=== PATIENT | female | born 1995 | race Caucasian/White ===

== ENCOUNTER 2021-06-15 14:07 | Emergency (ER) | payer MEDICAID, OTHER ==
[~2021-06-15] VITALS: Ht 157.5 cm; Wt 66.0 kg
[2021-06-15 14:16] VITALS: BP 120/75
[2021-06-15] MEDS ORDERED: ORPHENADRINE CITRATE 60 MG/2 ML VIAL. IM ONE (14:30)
[2021-06-15] MEDS ORDERED: KETOROLAC 60 MG/2 ML VIAL. IM ONE (14:30)
--- NOTE | 2021-06-15 14:34 | RAD ---
Site ID: [id number] EXAMINATION: XR LUMBAR SPINE 2-3V. HISTORY: 25 years Female Reason: low back pain, fall COMPARISON: None. FINDINGS: The alignment of the lumbar spine is satisfactory. There is straightening of the spine curvature whic h may relate to muscle spasm. The vertebral body heights and disc heights are preserved. No spondylol isthesis. No compression fractures. SI joints appear unremarkable. The paraspinal soft tissues appear grossly unremarkable. IMPRESSION: There is straightening of the lumbar spine curvature which may relate to muscle spasm. No compression fracture. Electronically signed by: Frantz Arevalo MD (06/15/2021 2:32 PM) [id number]
--- NOTE | 2021-06-15 14:38 | PHYS DOC ---
Past History Past Surgical History: Tubal ligation (SARAHY BROWN APRN) General Adult EDM: Chief Complaint: LOWER BACK PAIN OR INJURY HPI: HPI: Patient is a 25-year-old female being seen in the ER with pain to her coccyx. Patient states that 3 days ago she was running with her son and she slipped and fell back onto her bottom. Patient rates pain 7 out of 10. She states it reall y did not hurt until yesterday. It is painful to sit. Patient is able to bear weight and ambulate with a steady gait. She denies any numbness or tingling in her extremities, saddle anesthesias, radiation of pain, loss of bowel or bladder. (SARAHY BROWN APRN) Review of Systems: Review of Systems: 14 body systems of the review of systems have been reviewed. See HPI for pertinent positive and negative responses, otherwise all other systems are negative, nonpertinent or noncontributory (SARAHY BROWN APRN) Current Medications: Current Meds: Current Medications Medications (Trade) Dose Ordered Sig/Jm Start Time Stop Time Status Last Admin Dose Admin Ketorolac Tromethamine (Toradol Im) 60 mg 1X ONCE 06/15/21 14:30 06/15/21 14:31 DC Orphenadrine Citrate (Norflex) 60 mg 1X ONCE 06/15/21 14:30 06/15/21 14:31 DC (SARAHY BROWN APRN) Allergies: Allergies: Allergies Coded Allergies Type Severity Reaction Last Updated Verified No Known Drug Allergies 06/15/21 No (SARAHY BROWN APRN) Physical Exam: PE: Constitutional: Well developed, well nourished, no acute distress, non-toxic appearance. [] HENT: Normocephalic, atraumatic, bilateral external ears normal, oropharynx moist, no oral exudates, nose normal. [] Eyes: PERRL, EOMI, conjunctiva normal, no discharge. [] Neck: Normal range of motion, no bony cervical spinal tenderness, supple, no stridor. [] Cardiovascular:Heart rate regular rhythm, no murmur [] Lungs & Thorax: Bilateral breath sounds clear to auscultation [] Abdomen: Bowel sounds normal, soft, no tenderness, no masses, no pulsatile masses. [] Skin: Warm, dry, no erythema, no rash. [] Back: No bony spinal tenderness, no CVA tenderness, pain with palpation to the coccyx. [] Extremities: No tenderness, no cyanosis, no clubbing, ROM intact, no edema. [] Neurologic: Alert and oriented X 3, normal motor function, normal sensory function, no focal deficits noted. [] Psychologic: Affect normal, judgement normal, mood normal. [] (SARAHY BROWN APRN) Current Patient Data: Vital Signs: Vital Signs Date Time Temp Pulse Resp B/P (MAP) Pulse Ox O2 Delivery O2 Flow Rate FiO2 06/15/21 14:16 85 18 120/75 (90) 100 (SARAHY BROWN APRN) EKG: EKG: [] (SARAHY BROWN APRN) Radiology/Procedures: Radiology/Procedures: []PROCEDURE: SACRUM & COCCYX 3V XR SACRUM AND COCCYX 2+VIEWS History: Back pain. Fall onto coccyx. Comparison: 10/08/2017 Technique: AP view sacrum. AP view coccyx. Lateral view sacrum and coccyx. Findings: Osseous mineralization is normal. The distal coccygeal segment is not well visualized, however there is subtle cortical irregularity on the lateral view only. The sacroiliac joints and pubic symphysis are unremarkable. Soft tissues are unremarkable. Impression: 1. Poorly visualized distal coccygeal segment demonstrates cortical irregularities concerning for fracture, identified in the lateral view only. Electronically signed by: Fernando Mariscal MD (06/15/2021 2:59 PM) [id number] DICTATED AND SIGNED BY: FERNANDO MARISCAL MD DATE: 06/15/21 1454 CC: SARAHY BROWN APRN; PCP,NO ~MTH0 0 Site ID: [id number] EXAMINATION: XR LUMBAR SPINE 2-3V. HISTORY: 25 years Female Reason: low back pain, fall COMPARISON: None. FINDINGS: The alignment of the lumbar spine is satisfactory. There is straightening of the spine curvature which may relate to muscle spasm. The vertebral body heights a nd disc heights are preserved. No spondylolisthesis. No compression fractures. SI joints appear unremarkable. The paraspinal soft tissues appear grossly unremarkable. IMPRESSION: There is straightening of the lumbar spine curvature which may relate to muscle spasm. No compression fracture. Electronically signed by: Yan Arevalo MD (06/15/2021 2:32 PM) [id number] DICTATED AND SIGNED BY: YAN AREVALO MD DATE: 06/15/21 1429 CC: SARAHY BROWN APRN; PCP,NO ~MTH0 0 (SARAHY BROWN APRN) Heart Score: C/O Chest Pain: No Risk Factors: Risk Factors: DM, Current or recent (<one month) smoker, HTN, HLP, family history of CAD, obesity. Risk Scores: Score 0 - 3: 2.5% MACE over next 6 weeks - Discharge Home Score 4 - 6: 20.3% MACE over next 6 weeks - Admit for Clinical Observation Score 7 - 10: 72.7% MACE over next 6 weeks - Early Invasive Strategies (SARAHY BROWN APRN) Course & Med Decision Making: Course & Med Decision Making Pertinent Labs and Imaging studies reviewed. (See chart for details) [] Patient is a 25-year-old female being seen in the ER for pain to her coccyx after she fell onto it 3 days ago. Imaging was performed in the ER that showed possible coccyx fracture. Patient treated with anti-inflammatory medications and muscle relaxer. Patient advised to follow-up with her primary care provider tomorrow. She was advised to take Tylenol/ibuprofen for pain at home. She is educated on rest and cushion for coccyx. I discussed with patient all findings and diagnostic testing as well as the need to follow-up with PCP for further evaluation and treatment or return to the ER if any new or worsening symptoms. Strict return precautions were also discussed at length. Patient voiced understanding and agreement with the plan. Patient is hemodynamically stable at the time of disposition. (SARAHY BROWN APRN) Course & Med Decision Making I was the Attending physician on the above date of service of this patient. This patient was evaluated, examined, treated, and dispositioned from the emergency department by the mid-level practitioner. Although I was working at the time , no assistance was requested. Electronically signed, Esther Urena DO (ESTHER URENA DO) Magy Disclaimer: Magy Disclaimer: This electronic medical record was generated, in whole or in part, using a voice recognition dictation system. (SARAHY BROWN APRN) Departure Departure: Impression: Primary Impression: Fractured coccyx Qualified Codes: S32.2XXA - Fracture of coccyx, initial encounter for closed fracture Disposition: HOME / SELF CARE / HOMELESS Condition: GOOD Referrals: PCP,NO (PCP) Patient Instructions: Back Pain, Adult Additional Instructions: You were seen in the ER today for pain to your coccyx after falling onto it. Imaging was performed in the ER that showed a possible fracutre of your coccyx. Your pain was treated in the ER. You can take Ibuprofen at home for mild pain, for severe pain you can take the medication you are being prescribed. This medication is called Heath. It contains hydrocodone and Tylenol combination tablet. Do not take any additional Tylenol with this medication. Do not take this medication when you need to be alert and do not take with alcohol as it may cause drowsiness. You can also apply ice. You may benefit from purchasing a cushion to sit on for your coccyx. Follow-up with your primary care provider tomorrow regarding your ER visit. If you develop worsening of your pain, inability to bear weight or ambulate, loss of bowel or bladder, numbness or tingling in your groin or down your legs please return to the ER immediately. EMERGENCY DEPARTMENT GENERAL DISCHARGE INSTRUCTIONS Thank you for coming to [facility] (ED) today and trusting us with you care. We trust that you had a positivie experience in our Emergency Department. If you wish to speak to the department management, you may call the director at [phone]. YOUR FOLLOW UP INSTRUCTIONS ARE FOLLOWS: 1. Do you have a private Doctor? If you do not have a private doctor, please ask for a resource list of physicians or clinics that may be able to assist you with follow up care. 2. The Emergency Physician has interpreted your x-rays. The X-Ray specialist will also review them. If there is a change in the findings, you will be notified in 48 hours when at all possible. 3. A lab test or culture has been done, your results will be reviewed and you will be notified if you need a change in treatment. ADDITIONAL INSTRUCTIONS AND INFORMATION: 1. Your care today has been supervised by a physician who is specially trained in emergency care. Many problems require more than one evaluation for a complete diagnosis and treatment. We recommend that you schedule your follow up appointment as recommended to ensure complete treatment of you illness or injury. If you are unable to obtain follow up care and continue to have a problem, or if your condition worsens, we recommend that you return to the ED. 2. We are not able to safely determine your condition over the phone nor are we able to give sound medical advice over the phone. For these safety reasons, if you call for medical advice we will ask you to come to the ED for further evaluation. 3. If you have any questions regarding these discharge instructions please call the ED at [phone]. SAFETY INFORMATION: In the interest of safety, wellness, and injury prevention; we encourage you to wear your sealbelt, if you smoke; quite smoking, and we encourage family to use a protective helmet for bicycling and other sporting events that present an increased risk for head injury. IF YOUR SYMPTOMS WORSEN OR NEW SYMPTOMS DEVELOP, OR YOU HAVE CONCERNS ABOUT YOUR CONDITION; OR IF YOUR CONDITION WORSENS WHILE YOU ARE WAITING FOR YOUR FOLLOW UP APPOINTMENT; EITHER CONTACT YOUR PRIMARY CARE DOCTOR, THE PHYSICIAN WHOSE NAME AND NUMBER YOU WERE GIVEN, OR RETURN TO THE ED IMMEDIATELY. Scripts Hydrocodone Bit/Acetaminophen (HYDROCODONE-APAP 5-325 ) 1 Each Tablet 1 TAB PO PRN Q6HRS PRN for PAIN for 2 Days, #8 TAB 0 Refills Prov: SARAHY BROWN APRN 06/15/21 SARAHY BROWN APRN Jun 15, 2021 14:38 ESTHER URNEA DO Jun 20, 2021 17:52
--- NOTE | 2021-06-15 15:02 | RAD ---
XR SACRUM AND COCCYX 2+VIEWS History: Back pain. Fall onto coccyx. Comparison: 10/08/2017 Technique: AP view sacrum. AP view coccyx. Lateral view sacrum and coccyx. Findings: Osseous mineralization is normal. The distal coccygeal segment is not well visualized, however there is subtle cortical irregularity on the lateral view only. The sacroiliac joints and pubic symphysis a re unremarkable. Soft tissues are unremarkable. Impression: 1. Poorly visualized distal coccygeal segment demonstrates cortical irregularities concerning for fr acture, identified in the lateral view only. Electronically signed by: Fernando Man MD (06/15/2021 2:59 PM) [id number]
[2021-06-15] MEDS ORDERED: HYDR-2155 PO (15:13)
== END 2021-06-15 15:35 | disposition home or self-care (01) ==
LOC: ER 14:07
DX: S32.2XXA Fracture of coccyx, initial encounter for closed fracture (principal); Z98.51 Tubal ligation status; W01.0XXA Fall on same level from slipping, tripping and stumbling without subsequent striking against object, initial encounter; Y93.02 Activity, running; Y92.89 Other specified places as the place of occurrence of the external cause; Y99.8 Other external cause status
CPT/HCPCS: 72100; 72220; 99284

== ENCOUNTER 2021-06-27 17:08 | Emergency (ER) | payer MEDICAID, OTHER ==
[~2021-06-27] VITALS: Ht 157.5 cm; Wt 63.6 kg
[~2021-06-27 17:08] MED LIST: HYDR-2155 PO
[2021-06-27 18:21] VITALS: BP 116/76
--- NOTE | 2021-06-27 18:33 | PHYS DOC ---
Past History Past Surgical History: Tubal ligation Adult General Chief Complaint Chief Complaint: DENTAL PROBLEM HPI HPI Patient is a 26-year-old female presenting for dental pain. This is a chronic issue. She reports just moving to the local area and not establishing with a dentist. She has longstanding history of poor dentition, dental caries and has remote history of dental abscess that is never required drainage. She has had numerous rounds of antibiotics but nothing recently. States she has been using ibuprofen and Tylenol for pain control without significant relief for past 48 hours. Reports pain is on the upper right side of her mouth and radiates up towards her head and down towards her inferior jawline. She was discussing symptoms with her mother who was concern for potential abscess or infection. She has no other medical issues, takes no other medications on a daily basis Review of Systems Review of Systems Fourteen body systems of review of systems have been reviewed. See HPI for pertinent positives and negative responses, other [place] all other systems are negative, non-pertinent or non-contributory Allergies Allergies Allergies Coded Allergies Type Severity Reaction Last Updated Verified No Known Drug Allergies 06/15/21 No Physical Exam Physical Exam Constitutional: Well developed, well nourished, no acute distress, non-toxic appearance. HENT: Normocephalic, atraumatic, bilateral external ears normal, oropharynx moist, no oral exudates, nose normal. Grossly poor dentition with numerous missing teeth, several dental caries that appear chronic, no obvious signs of active infection or abscess Eyes: PERRLA, EOMI, conjunctiva normal, no discharge. Neck: Normal range of motion, no tenderness, supple, no stridor. Cardiovascular: Heart rate regular per monitor Lungs & Thorax: No respiratory distress or accessory muscle use, bilateral chest rise Abdomen: Abdomen soft, non-tender, bowel sounds present in all quadrants, no guarding or rebound, nonacute abdomen. Skin: Warm, dry, no erythema, no rash. Back: No tenderness, no CVA tenderness. Extremities: No tenderness, no cyanosis, no clubbing, ROM intact, no edema. Neurologic: Alert and oriented X 3, grossly normal motor & sensory function, no focal deficits noted. Psychologic: Affect normal, judgement normal, mood normal. EKG EKG [] Radiology/Procedures Radiology/Procedures [] Heart Score C/O Chest Pain: No Risk Factors: Risk Factors: DM, Current or recent (<one month) smoker, HTN, HLP, family history of CAD, obesity. Risk Scores: Risk Factors: DM, Current or recent (<one month) smoker, HTN, HLP, family history of CAD, obesity. Course & Med Decision Making Course & Med Decision Making ABCs unremarkable HPI and physical exam nonconcerning for any emergent or surgical issues. Patient has no findings of active infection and/or abscess requiring incision and drainage and/or antibiotics Advise continued supportive care using ibuprofen and Motrin with Magic mouthwash, patient was given x1 [place] today with instructions to follow-up in outpatient setting with dentist for definitive management Strict return precautions discussed with good understanding by patient, all questions and concerns addressed prior to departure Dragon Disclaimer Dragon Disclaimer This electronic medical record was generated, in whole or in part, using a voice recognition dictation system. Departure Departure: Impression: Primary Impression: Dentalgia Additional Impression: Chronic dental pain Disposition: HOME / SELF CARE / HOMELESS Condition: STABLE Referrals: PCP,NO (PCP) Additional Instructions: You were seen for dental pain. There does not appear to be any infection at this time. Take Ibuprofen (600-800mg) and Tylenol (500-650mg) alternating every 4-6 hours to help with inflammation and pain while you contact a dentist for further care. You should return to the ED if you develop worsening pain, fever > 101, swelling, redness, or any other new or concerning symptoms. Unfortunately, your pain is not likely to improve without seeing a dentist for further evaluation and treatment of your poor dentition and dental caries. Problem Qualifiers ESTHER URENA DO Jun 27, 2021 18:33
[2021-06-27] MEDS ORDERED: HYDROcodone/APAP 5/325MG 1 TAB TABLET ONE (18:38)
[2021-06-27] MEDS ORDERED: HYDROcodone/APAP 5/325MG 1 TAB TABLET PO ONE (18:45)
== END 2021-06-27 18:42 | disposition home or self-care (01) ==
LOC: ER 17:08
DX: G89.29 Other chronic pain (principal); K02.9 Dental caries, unspecified
CPT/HCPCS: 99283